=== PATIENT | female | born 1975 | race Caucasian/White ===

== ENCOUNTER 2024-05-24 09:37 | Emergency (ER) | payer OTHER, SELFPAY ==
[2024-05-24 09:54] VITALS: BP 134/76; PULSE 106; RESP 16; TEMP 37; O2SAT 99; BMI 22.7
--- NOTE | 2024-05-24 10:04 | ED_ITS ---
HPI - General Adult General Chief complaint: Insect Bite Stated complaint: insect bite swelling Time Seen by Provider: 05/24/24 10:04 History of Present Illness HPI narrative: Patient reports being stung or bit a couple of days ago. She is not sure what this was. Has concern for swelling in finger and feels that her wedding ring should be cut off. 48-year-old woman presenting to the emergency department with concern of the bite or a sting that occurred in the tip of her left 4th finger. A couple of days ago. Did swell and was more red. She is concerned about potential infection here. Admittedly today's better with less swelling and redness. She is though concerned about her wedding ring. She has been thinking that she needs to get this removed for quite some time and now is very concerned that she will have hard time getting this off. Is expecting that she needs to cut her ring off. She has not been able to remove it actually past the PIP knuckle. No rashes elsewhere or shortness of breath or sensation of throat tightness Related Data Allergies Allergy/AdvReac Type Severity Reaction Status Date / Time levofloxacin Allergy Intermediate Joint Pain Verified 05/24/24 09:54 omeprazole Allergy Intermediate Rash Verified 05/24/24 09:54 polymyxin B [From Polytrim] Allergy Mild Rash Verified 05/24/24 09:54 trimethoprim [From Polytrim] Allergy Mild Rash Verified 05/24/24 09:54 bacitracin AdvReac Intermediate Hives Verified 05/24/24 09:54 Review of Systems Status of ROS: Reports: 6 or more systems reviewed and unremarkable except as noted in History and below PFSH PFS Social History Smoking Status: Never smoker How often do you have a drink containing alcohol: monthly or less AUDIT-C Alcohol total score: 1 Non-prescribed substance use: denies use Exam Narrative: Exam Narrative: Pleasant. NAD. Examination of the left hand in question does reveal mildly swollen faintly erythematous with calor at the distal 4th finger of the left hand. No areas to suggest purulence. I do not identify site of inoculation or trauma. The swelling is limited to the distal phalanx. With attempt though at removal of her ring clearly will not be passing the PIP knuckle. Const: Vital Signs, click to edit/add: Vital Signs - 24 hr 05/24/24 09:54 Temperature 98.6 F Pulse Rate [Pulse Oximeter] 106 H Respiratory Rate 16 Blood Pressure [Ri ght Upper Arm] 134/76 Pulse Oximetry 99 Oxygen Delivery Me thod Room Air Documenting provider has reviewed patient's vital signs: yes Course Vital Signs Vital signs: Initial Vital Signs Temperature 98.6 F 05/24/24 09:54 Temperature Source Temporal Artery Scan 05/24/24 09:54 Pulse Rate 106 H 05/24/24 09:54 Respiratory Rate 16 05/24/24 09:54 Blood Pressure 134/76 05/24/24 09:54 Blood Pressure Mean 95 05/24/24 09:54 Pulse Oximetry 99 05/24/24 09:54 Oxygen Delivery Method Room Air 05/24/24 09:54 Vital Signs Temperature 98.6 F 05/24/24 09:54 Pulse Rate 106 H 05/24/24 09:54 Respiratory Rate 16 05/24/24 09:54 Blood Pressure 134/76 05/24/24 09:54 Pulse Oximetry 99 05/24/24 09:54 Oxygen Delivery Method Room Air 05/24/24 09:54 Temperature 98.6 F 05/24/24 10:40 Pulse Rate 106 H 05/24/24 10:40 Respiratory Rate 16 05/24/24 10:40 Blood Pressure 134/76 05/24/24 10:40 Pulse Oximetry 99 05/24/24 09:54 Oxygen Delivery Method Room Air 05/24/24 09:54 Medical Decision Making MDM Narrative Medical decision making narrative: I think overall the finger is likely on the side of improvement now. Unclear what may have happened. Likely insect envenomation/bite. There is no indication of infectious spread. No periungual inflammation. I do not think there is a felon here. That said it certainly could worsen yet and removal of this ring would be a good idea with that in mind. I did propose string/dental floss technique though I think I am in agreement with Silvina expressions of concern that that will not work and so we opted to cut the ring off. Did return with ring cutters. This was painful somewhat due to do pressure on the dorsal side of the finger. Ultimately succeeded in removing the 2 rings that were present. No other injury appeared to have been done to her finger See patient discharge plan for further discussion Discharge Plan Discharge Clinical Impression: Insect bite, Tight ring on finger Patient Disposition: Home, Self-Care Condition: Improved Additional Instructions: You might consider cold/ice water soak for comfort. Elevation for comfort. Watch for deepening and darkening redness, increasing swelling and particularly marked increase in pain. Best wishes in putting the pieces back together. Stand Alone [facility]: [facility] [place] Info Instructions
[2024-05-24 10:40] VITALS: BP 134/76; PULSE 106; RESP 16; TEMP 37
== END 2024-05-24 10:48 | disposition home or self-care (01) ==
LOC: ED 10:47
PROVIDERS: Emergency Provider Family Medicine
DX: S60.465A Insect bite (nonvenomous) of left ring finger, initial encounter (principal); S60.445A External constriction of left ring finger, initial encounter; W49.04XA Ring or other jewelry causing external constriction, initial encounter
CPT/HCPCS: 99283; 99284